=== PATIENT | male | born 1995 | race Hispanic/Latino ===

== ENCOUNTER 2021-08-01 14:01 | Emergency (ER) | payer SELFPAY ==
[~2021-08-01] VITALS: Ht 157.5 cm; Wt 63.5 kg
[2021-08-01 14:03] VITALS: BP 127/69
[2021-08-01] MEDS ORDERED: AMOX-429 PO (15:42)
[2021-08-01] MEDS ORDERED: D-ME118S47 PO (15:42)
[2021-08-01] MEDS ORDERED: MAGIC240 MM (15:42)
[2021-08-01] MEDS ORDERED: LIDOCAINE HCL 2% VISCOUS 15 ML UDCUP PO ONE (16:00)
[2021-08-01 16:29] VITALS: BP 120/65
== END 2021-08-01 16:31 | disposition home or self-care (01) ==
LOC: EDH 14:01
DX: J02.9 Acute pharyngitis, unspecified (principal); R05 Cough; Z79.899 Other long term (current) drug therapy
CPT/HCPCS: 87804; 87880